=== PATIENT | male | born 1975 | race Hispanic/Latino ===

== ENCOUNTER 2022-09-24 21:41 | Emergency (ER) | payer OTHER, SELFPAY ==
[2022-09-24 22:06] LABS: Absolute Lymphocytes (CBC) 1.6 K/uL (0.7-4.9); Hematocrit 43.8 % (39.6-49.0); Lymphocytes % 13.6 % (15.3-44.8); MCV 92.1 fL (80-100); MPV 6.2 fL (7.6-11.3); RBC Red Blood Cell Count 4.76 M/uL (4.33-5.43)
[2022-09-24] MEDS ORDERED: FAMOTIDINE 20 MG/2 ML VIAL IV ONE (22:09)
[2022-09-24] MEDS ORDERED: ONDANSETRON 4 MG/2 ML VIAL ONE (22:09)
[2022-09-24] MEDS ORDERED: NA CHLORIDE 0.9% 1,000 ML ONE (22:09)
--- OUTSIDE RECORDS SUMMARY | 2022-09-24 22:23 | XMS REPORT | Continuity of Care Document ---
:1975 Author Organization [facility] t Address [address] [place] [address] [place] [id number] Care Team Providers Name Role Phone Unavailable Unavailable Unavailable Problems This patient has no known problems. Allergies, Adverse Reactions, Alerts This patient has no known allergies or adverse reactions. Medications This patient has no known medications. Procedures This patient has no known procedures. Encounters Start End Encounter Admission Attending Care Care Encounter Source Date/Time Date/Time Type Type Clinicians Facility Department ID 2022-09-20 2022-09-20 Outpatient SFA SFA [id number] Дмитрий 17:13:10 17:13:[address] [facility] 2022-09-18 2022-09-18 Outpatient SFA SFA [id number] Дмитрий 16:45:34 16:45:[address] [facility] 2022-09-02 2022-09-02 Outpatient SFA SFA [id number] Дмитрий 17:17:35 17:17:35 0522 [facility] 2022-08-27 2022-08-27 Outpatient SFA SFA [id number] Дмитрий 16:43:51 16:43:[address] [facility] 2022-08-26 2022-08-26 Outpatient SFA SFA [id number] Дмитрий 16:38:15 16:38:[address] [facility] 2022-08-21 2022-08-21 Outpatient SFA SFA [id number] Дмитрий 17:09:45 17:09:[address] [facility] 2022-08-20 2022-08-20 Outpatient SFA SFA [id number] Дмитрий 16:19:35 16:19:[address] [facility] Results Test Description Test Time Test Comments Results Result Comments Source SHELLY (ANTI-NUCLEAR AB) WITH REFLEX TITER 2022-09-21 04:08:14 Test Item Value Reference Range Interpretation Comme nts ANTI-NUCLEAR ANTIBODIES NEGATIVE NEGATIVE Met hodology is Indirect (test code = 3506) Immunoflu orescent Assay (IFA) with a titering system using [id number] cells ( Hep2 cells transfected wit h SS-A/Ro). SHELLY PATTERN (REPORTED SEE BELOW TITER) (test code = 23826) HOMOGENEOUS (test code = NEGATIVE TITER NEGATIVE 57985) SPECKLED (test code = NEGATIVE TITER NEGATIVE 806546) DENSE FINE SPECKLED (test NEGATIVE TITER NEGATIVE code = 24739) CENTROMERE (test code = NEGATIVE TITER NEGATIVE 629960) COARSE SPECKLED (test code NEGATIVE TITER NEGATIVE = 008825) DISCRETE NUCLEAR DOTS (test NEGATIVE TITER NEGATIVE code = 567273) NUCLEOLAR (test code = NEGATIVE TITER NEGATIVE 470785) NUCLEAR MEMBRANE (test code NEGATIVE TITER NEGATIVE = 044281) CYTO. RETICULAR (GISSEL) NEGATIVE NEGATIVE (test code = 735806) COMMENTS (test code = NONE 701581) METHOD (test code = 86623) (NOTE) TESTING PERFORMED BY [employer] NOV A VIEW IFA PLATFORM.THE NV THOD INCLUDES A SCREEN THRESHOL D OF 1:80, DIGITIZED AND C OMPUTER ALGORITHM-JOS JOY INTERPRETATION OF TITERS AND DIGITAL PATTERN S, AND HEp-2 CELL LINE SUBSTRATE. ADDITIONAL UNUSUAL PATTERN S WILL BE GIVEN COMMENTS.FOR MORE INFORMATION, SE E [email or web address] /[email or web address]-Testing IRON BINDING CAPACITY AND IRON AND % [id number] 11:23:06 Test Item Value Reference Range Interpretation Comments IRON, SERUM (test code = 2222) 123 UG/DL 59-158 UNSATURATED IBC (test code = 42839) 272 UG/DL 112-347 CALC TOTAL IBC (test code = 2076) 395 UG/DL 250-450 CALC % IRON SAT (test code = 2078) 31 % 20-50 [id number] 11:22:57 Test Item Value Reference Range Interpretation Comments FERRITIN (test code = 2074) 625 NG/ML 30-400 H [id number] 11:22:32 Test Item Value Reference Range Interpretation Comments TRANSFERRIN (test code = 4936) 310 MG/DL 200-360 [id number] 11:22:32 Test Item Value Reference Range Interpretation Comments GGT (test code = 6176) 119 U/L <60 H VITAMIN B 12 AND FOLIC [id number] 11:00:44 Test Item Value Reference Range Interpretation Comments VITAMIN B-12 (test 613 PG/ML 200-950 code = 2840) FOLIC ACID (test 8.4 UG/L SEE BELOW INTE RPRETIVE code = 2695) RANGES DE FICIENCY . . . . . . . . . . . . . . . UG/L <4.0 POS SIBLE DEFICIENCY. . . . . . . . . . . UG/L 4.0- 5.9 SUFFICIENT . . . . . . . . . . . . . . . UG/L >=6.0 UNLESS O THERWISE INDICATED, [facility] [employer], [facility]. [address] [place] [id number] [place] [address] DIRECTOR: JENI PIERCE M.D. [place] NUMBER [id number] CAP ACCREDITATION N O. [id number] HIV 1/2 4TH GEN, RFLX [id number] 02:56:27 Test Item Value Reference Range Interpretation Comments HIV 1/2 4TH GEN, RFLX CONF (test NON-REACTIVE NON-REACTIVE code = 3514) HEPATITIS PANEL, [id number] 02:56:27 Test Item Value Reference Range Interpretation Comments HEPATITIS A IgM (test NON-REACTIVE NON-REACTIVE code = 07364) HEPATITIS B CORE IgM NON-REACTIVE NON-REACTIVE (test code = 4644) HEPATITIS B SURF AG NON-REACTIVE NON-REACTIVE (test code = 2739) HEPATITIS C ANTIBODY NON-REACTIVE NON-REACTIVE (test code = 4675) INTERPRETATION (NOTE) Hepatitis A HEPATITIS A: (test code sero logy shows no = 2552) evidence of acu te hepatitis A. INTERPRETATION (NOTE) Hepatitis B HEPATITIS B: (test code sero logy shows no = 75601) evidence of acu te hepatitis B and no indication of exposure to hepatitis B vir us in the previous krystle eight months. INTERPRETATION (NOTE) Hepatitis C HEPATITIS C: (test code sero logy shows no = 81250) evidence of exposure to hepatitisC viru s at this time. I t can take up to 12 months after exposure tothe hepatitis C vir us for antibodies to become detectab le in the blood in certain patient s. COMPREHENSIVE METABOLIC [id number] 06:52:38 Test Item Value Reference Range Interpretation Comments GLUCOSE (test code = 92 MG/DL 70-99 2216) BUN (test code = 17 MG/DL 6-20 2207) CREATININE (test 1.49 MG/DL 0.80-1.40 H code = 2214) eGFR (2020 CKD-EPI) 57 ML/MIN/1.73 >60 L The N KF-ASN (test code = 94793) Taskforc e recommends use of Cystatin C to confirm eGFR inadults at [facility] for CKD. [facility] offers eGFR with Cystatin C-Creatinineusi ng the 2020 CKD-EP I eGFR_creat-cyst at equation (order code 3057) toincreas e the accuracy of estimated GFR. For more informatio n, contactyour acc ount executive or se e announcement [email or web address] [email or web address] CALC BUN/CREAT (test 11 RATIO 6-28 code = 2235) SODIUM (test code = 141 MEQ/L 873-910 6882) POTASSIUM (test code 4.6 MEQ/L 3.5-5.4 = 2227) CHLORIDE (test code 103 MEQ/L 95-107 = 2214) CARBON DIOXIDE (test 23 MEQ/L 19-31 code = 2206) CALCIUM (test code = 9.4 MG/DL 8.5-10.5 2208) PROTEIN, TOTAL (test 7.3 G/DL 6.1-8.3 code = 2229) ALBUMIN (test code = 4.6 G/DL 3.5-5.2 2200) CALC GLOBULIN (test 2.7 G/DL 1.9-3.7 code = 2240) CALC A/G RATIO (test 1.7 RATIO 1.0-2.6 code = 2234) BILIRUBIN, TOTAL 1.1 MG/DL See_Comment [Automated message] (test code = 2207) The syste m which generated this result transmit joy reference range : <=1.2. The refe rence range was not u sed to interpret th is result as normal/abnormal . ALKALINE PHOSPHATASE 98 U/L 40-118 (test code = 2204) AST (test code = 126 U/L 9-50 H 2217) ALT (test code = 314 U/L 5-50 H 2218) [id number] 06:51:20 Test Item Value Reference Range Interpretation Comments MAGNESIUM (test code = 2226) 2.6 MG/DL 1.6-2.6 [id number] 06:51:20 Test Item Value Reference Range Interpretation Comments PHOSPHORUS (test code 3.3 MG/DL 2.5-4.5 UNLES S OTHERWISE = 2227) INDICATED, ALL TESTING PERFORMED AT [facility], [facility]. [address] [place] [address] 4 LABORATORY DIRE CTOR: RICKIE ADKINS M.D. [place] NUMBER [id number] [place] [id number] CBC W/AUTO DIFF WITH [id number] 02:32:55 Test Item Value Reference Range Interpretation Comments WBC (test code = 5.1 K/UL 3.5-11.0 1001) RBC (test code = 4.61 M/UL 4.50-6.10 1002) HEMOGLOBIN (test code 14.7 G/DL 13.5-17.0 = 1003) HEMATOCRIT (test code 42.8 % 40.0-51.0 = 1004) MCV (test code = 92.8 fL 80.0-99.0 1005) MCH (test code = 31.9 PG 25.0-33.0 1006) MCHC (test code = 34.3 G/DL 31.0-36.0 1007) RDW (test code = 12.5 % 11.5-15.0 1038) NEUTROPHILS (test 52.5 % code = 1008) LYMPHOCYTES (test 26.7 % code = 1010) MONOCYTES (test code 13.9 % = 1011) EOSINOPHILS (test 5.3 % code = 1012) BASOPHILS (test code 0.8 % = 1013) IMMATURE GRANULOCYTES 0.8 % (test code = 1036) NUCLEATED RBCS (test 0.0 /100 WBC'S See_Comment [Aut omated code = 1065) message] The sy stem which generated this result transmitted reference range : 0.0. The refere nce range was not u sed to interpret th is result as normal/abnormal . PLATELET COUNT (test 265 K/UL 130-400 code = 1015) ABSOLUTE NEUTROPHILS 2.65 K/UL 1.50-7.50 (test code = 1066) ABSOLUTE LYMPHOCYTES 1.35 K/UL 1.00-4.00 (test code = 1067) ABSOLUTE MONOCYTES 0.70 K/UL 0.20-1.00 (test code = 1068) ABSOLUTE EOSINOPHILS 0.27 K/UL 0.00-0.50 (test code = 1040) ABSOLUTE BASOPHILS 0.04 K/UL 0.00-0.20 (test code = 1069) ABS IMMATURE 0.04 K/UL 0.00-0.10 GRANULOCYTES (test code = 1020) ABS NUCLEATED RBCS 0.00 K/UL 0.00-0.11 (test code = 59260)
[2022-09-24 22:26] LABS: Bilirubin Total 1.5 mg/dL (0.2-1.0); Protein, Total 8.1 g/dL (6.4-8.2); Troponin High Sensitivity 20.1 pg/mL (<58.9)
[2022-09-24 22:28] LABS: Potassium 3.4 mEq/L (3.5-5.1)
[2022-09-25] MEDS ORDERED: NA CHLORIDE 0.9% 1,000 ML ONE (00:49)
--- NOTE | 2022-09-25 00:59 | EDPHYS ---
Physician Documentation [facility] Name: Good Marin Age: 47 yrs Sex: Male : 1975 Arrival Date: 09/24/2022 Time: 21:41 Bed 18 Private MD: ED Physician Jose Daniel Miller HPI: 09/24 23:14 This 47 yrs old Male presents to ER via Ambulatory with complaints of Vomiting.kb 23:14 The patient presents to the emergency department with nausea, vomiting, abdominal pain, kb of the epigastric area, described as burning. 23:15 Onset: The symptoms/episode began/occurred today, at 15:00. Possible causes: unknown. kb The symptoms are aggravated by nothing. The symptoms are alleviated by nothing. Associated signs and symptoms: Pertinent positives: abdominal pain, nausea, vomiting, Pertinent negatives: fever. Severity of symptoms: At their worst the symptoms were moderate in the emergency department the symptoms are unchanged. The patient has not experienced similar symptoms in the past. The patient has not recently seen a physician. Historical: - Allergies: 21:58 No Known Allergies; pf1 - Home Meds: 21:58 omeprazole Oral [Active]; pf1 - PMHx: 21:58 Alcohol dependence; pf1 - PSHx: 21:58 None; pf1 - Immunization history:: Adult Immunizations not up to date, Last tetanus immunization: > 10 years ago Flu vaccine is not up to date. - Social history:: Smoking status: Patient denies any tobacco usage or history of. Patient uses alcohol, on a daily basis. Patient/guardian denies using street drugs. ROS: 22:25 Constitutional: Negative for fever, chills, and weight loss. kb 22:25 Abdomen/GI: Positive for abdominal pain, nausea and vomiting. 22:25 All other systems are negative. Exam: 22:25 Constitutional: This is a well developed, well nourished patient who is awake, alert, kb and in no acute distress. Head/Face: Normocephalic, atraumatic. Cardiovascular: Regular rate and rhythm with a normal S1 and S2. No gallops, murmurs, or rubs. No pulse deficits. Respiratory: Respirations even and unlabored. No increased work of breathing. Talking in full sentences Abdomen/GI: Soft, non-tender. No distention Skin: Warm, dry with normal turgor. Normal color. MS/ Extremity: Pulses equal, no cyanosis. Neurovascular intact. Full, normal range of motion. Neuro: Awake and alert, GCS 15, oriented to person, place, time, and situation. Moves all extremities. Normal gait. 22:25 ECG was reviewed by the Attending Physician. kb Vital Signs: 21:55 BP 160 / 114; Pulse 113; Resp 18; Temp 98.6; Pulse Ox 98% on R/A; Weight 69.85 kg; pf1 Height 5 ft. 9 in. ; Pain 9/10; 23:00 BP 154 / 93; Pulse 111; Resp 14; Pulse Ox 100% on R/A; Pain 0/10; pf1 09/25 00:00 BP 152 / 93; Pulse 101; Resp 14; Pulse Ox 97% on R/A; pf1 01:00 BP 157 / 91; Pulse 94; Resp 18; Pulse Ox 97% ; Pain 0/10; pf1 02:00 BP 147 / 93; Pulse 99; Resp 18; Pulse Ox 98% on R/A; Pain 0/10; pf1 09/24 21:55 Body Mass Index 22.74 (69.85 kg, 175.26 cm) 1 09/24 21:55 Pain Scale: Adult pf1 23:00 Pain Scale: Adult pf1 01:00 Pain Scale: Adult pf1 02:00 Pain Scale: Adult pf1 MDM: 09/24 21:44 Patient medically screened. kb 23:15 Differential diagnosis: Nonspecific abd pain, gastritis, viral gastroenteritis. Data kb reviewed: vital signs, nurses notes. 09/25 00:57 Consideration of Admission/Observation Escalation of care including kb admission/observation considered. Management of patient was discussed with the following: Dr Miller. Counseling: I had a detailed discussion with the patient and/or guardian regarding: the historical points, exam findings, and any diagnostic results supporting the discharge/admit diagnosis, lab results, radiology results, the need for outpatient follow up, a family practitioner, a airline ticket agent, to return to the emergency department if symptoms worsen or persist or if there are any questions or concerns that arise at home. 09/24 21:47 Order name: CBC with Diff; Complete Time: 22:16 kb 09/24 21:47 Order name: CMP; Complete Time: 22:29 kb 09/24 21:47 Order name: Lipase; Complete Time: 22:29 kb 09/24 22:11 Order name: Troponin High Sensitivity; Complete Time: 22:29 EDMS 09/24 21:47 Order name: CT Abd/Pelvis - IV Contrast Only kb 09/24 21:47 Order name: IV Saline Lock; Complete Time: 22:04 kb 09/24 21:47 Order name: Labs collected and sent; Complete Time: 22:04 kb EC/13 22:25 Rate is 107 beats/min. Rhythm is regular. QRS Dwale is Normal. GA interval is normal at kb 128 msec. QRS interval is normal at 94 msec. QT interval is normal at 448 msec. Administered Medications: 22:05 Drug: NS 0.9% IV 1000 ml Route: IV; Rate: 1 bolus; Site: right antecubital; pf1 23:04 Follow up: Response: No adverse reaction; Marked relief of symptoms; IV Status: pf1 Completed infusion; IV Intake: 1000ml 22:05 Drug: Ondansetron IVP 4 mg Route: IVP; Site: right antecubital; pf1 23:04 Follow up: Response: No adverse reaction; Marked relief of symptoms; Nausea is decreasedpf1 22:05 Drug: Famotidine IVP 20 mg Route: IVP; Site: right antecubital; pf1 23:04 Follow up: Response: No adverse reaction; Marked relief of symptoms; Pain is decreased pf1 09/25 00:44 Drug: NS 0.9% IV 1000 ml Route: IV; Rate: 1000 ml; Site: right antecubital; ha1 01:18 Follow up: Response: No adverse reaction; Marked relief of symptoms pf1 01:40 Follow up: Response: No adverse reaction; Marked relief of symptoms; IV Status: pf1 Completed infusion; IV Intake: 1000ml 01:20 Drug: Ativan IVP 1 mg Route: IVP; Site: right antecubital; pf1 02:20 Follow up: Response: No adverse reaction; Marked relief of symptoms pf1 Disposition: 02:07 Co-signature as Attending Physician, Jose Daniel Miller MD I reviewed the patient's care rt provided by the Advanced Practice Provider and agree with the diagnosis and treatment plan. Disposition Summary: 09/25/22 00:58 Discharge Ordered Location: Home kb Condition: Stable kb Diagnosis - Nausea with vomiting, unspecified kb - Esophagitis, unspecified kb Followup: kb - With: Emergency Department - When: As needed - Reason: Worsening of condition Followup: kb - With: Private Physician - When: 2 - 3 days - Reason: Recheck today's complaints, Continuance of care, Re-evaluation by your physician Discharge Instructions: - Discharge Summary Sheet kb - Esophagitis kb - Nausea and Vomiting, Adult, [id number] kb Forms: - Medication Reconciliation Form kb - Thank You Letter kb - Antibiotic Education kb - Prescription Opioid Use kb Prescriptions: - Protonix 40 mg Oral Tablet - take 1 tablet by ORAL route once daily; 30 tablet; Refills: 0, Product kb Selection Permitted - Zofran 4 mg Oral Tablet - take 1 tablet by ORAL route every 6 hours As needed; 20 tablet; Refills: 0, kb Product Selection Permitted Signatures: Dispatcher [employer] EDKeren Alicia, [employer]-C [employer] OFFICER-Imani Demarco, RN RN ha1 Jose Daniel Miller MD MD rt Michaela Wills RN RN pf1 Corrections: (The following items were deleted from the chart) 09/24 22:11 22:02 Troponin High Sensitivity+C.LAB.BRZ ordered. EDIN EDMS
--- NOTE | 2022-09-25 00:59 | ER ---
Nurse's Notes [facility] Name: Good Marin Age: 47 yrs Sex: Male : 1975 Arrival Date: 09/24/2022 Time: 21:41 Bed 18 Private MD: Diagnosis: Nausea with vomiting, unspecified;Esophagitis, unspecified Presentation: 09/24 21:55 Chief complaint: Patient states: epigastric burning pain of 9 with vomiting x 4 pf1 episodes,onset 1500 today. Patient stated drank 4 shots of Gareth Ya and drank 1 beer today. Patient stated drank a lot of alcohol over the weekend than his normal. Coronavirus screen: Vaccine status: Patient reports receiving the 2nd dose of the covid vaccine. 3 doses of Moderna Client denies travel out of the [place] in the last 14 days. At this time, the client does not indicate any symptoms associated with coronavirus-19. Ebola Screen: Patient negative for fever greater than or equal to 101.5 degrees Fahrenheit, and additional compatible Ebola Virus Disease symptoms. Initial Sepsis Screen: Does the patient meet any 2 criteria? HR > 90 bpm. No. Patient's initial sepsis screen is negative. Does the patient have a suspected source of infection? No. Patient's initial sepsis screen is negative. Risk Assessment: Do you want to hurt yourself or someone else? Patient reports no desire to harm self or others. 21:55 Method Of Arrival: Ambulatory pf1 21:55 Acuity: DIVYA 3 pf1 Historical: - Allergies: 21:58 No Known Allergies; pf1 - Home Meds: 21:58 omeprazole Oral [Active]; pf1 - PMHx: 21:58 Alcohol dependence; pf1 - PSHx: 21:58 None; pf1 - Immunization history:: Adult Immunizations not up to date, Last tetanus immunization: > 10 years ago Flu vaccine is not up to date. - Social history:: Smoking status: Patient denies any tobacco usage or history of. Patient uses alcohol, on a daily basis. Patient/guardian denies using street drugs. Screenin:00 [facility] ED Fall Risk Assessment (Adult) History of falling in the last 3 months, pf1 including since admission No falls in past 3 months (0 pts) Confusion or Disorientation No (0 pts) Intoxicated or Sedated No (0 pts) Impaired Gait No (0 pts) Mobility Assist Device Used No (0 pt) Altered Elimination No (0 pt) Score/Fall Risk Level 0 - 2 = Low Risk Oriented to surroundings, Maintained a safe environment, Educated pt \T\ family on fall prevention, incl call for assistance when getting out of bed, Assessed \T\ reinforced patient's understanding of fall precautions, Provided non-skid footwear, Hourly rounding (assess needs \T\ fall precautionary measures) done, Used ambulatory aids as needed (educated on \T\ assisted with), Used gait belt as appropriate. Abuse screen: Denies threats or abuse. Nutritional screening: No deficits noted. Tuberculosis screening: No symptoms or risk factors identified. Assessment: 22:02 General: Appears in no apparent distress. uncomfortable, well groomed, well developed, pf1 Behavior is calm, cooperative, appropriate for age, quiet. Pain: Complains of pain in epigastric pain Pain currently is 9 out of 10 on a pain scale. Neuro: No deficits noted. Level of Consciousness is awake, alert, obeys commands, Oriented to person, place, time, situation. Cardiovascular: No deficits noted. Reports vomiting, since today Capillary refill < 3 seconds Patient's skin is warm and dry. Respiratory: No deficits noted. Airway is patent Trachea midline Respiratory effort is even, unlabored, Respiratory pattern is regular, symmetrical. GI: Abdomen is flat, non-distended, Bowel sounds present X 4 quads. Reports epigastric pain, nausea, vomiting, since 1500 today. : No deficits noted. No signs and/or symptoms were reported regarding the genitourinary system. EENT: No deficits noted. Derm: No deficits noted. No signs and/or symptoms reported regarding the dermatologic system. Musculoskeletal: No deficits noted. No signs and/or symptoms reported regarding the musculoskeletal system. Circulation, motion, and sensation intact. Capillary refill < 3 seconds, Range of motion: intact in all extremities. 23:03 Reassessment: Patient appears in no apparent distress at this time. Patient and/or pf1 family updated on plan of care and expected duration. Pain level reassessed. Patient is alert, oriented x 3, equal unlabored respirations, skin warm/dry/pink. Patient denies pain at this time. Patient states feeling better. Patient states symptoms have improved. 09/25 00:00 Reassessment: Patient appears in no apparent distress at this time. Patient and/or pf1 family updated on plan of care and expected duration. Pain level reassessed. Patient is alert, oriented x 3, equal unlabored respirations, skin warm/dry/pink. Patient denies pain at this time. Patient states feeling better. Patient states symptoms have improved. 01:00 Reassessment: Patient appears in no apparent distress at this time. Patient and/or pf1 family updated on plan of care and expected duration. Pain level reassessed. Patient is alert, oriented x 3, equal unlabored respirations, skin warm/dry/pink. Patient denies pain at this time. Patient states feeling better. Patient states symptoms have improved. 02:00 Reassessment: Patient appears in no apparent distress at this time. Patient and/or pf1 family updated on plan of care and expected duration. Pain level reassessed. Patient is alert, oriented x 3, equal unlabored respirations, skin warm/dry/pink. Patient denies pain at this time. Patient states feeling better. Patient states symptoms have improved. Vital Signs: 09/24 21:55 BP 160 / 114; Pulse 113; Resp 18; Temp 98.6; Pulse Ox 98% on R/A; Weight 69.85 kg; pf1 Height 5 ft. 9 in. ; Pain 9/10; 23:00 BP 154 / 93; Pulse 111; Resp 14; Pulse Ox 100% on R/A; Pain 0/10; pf1 09/25 00:00 BP 152 / 93; Pulse 101; Resp 14; Pulse Ox 97% on R/A; pf1 01:00 BP 157 / 91; Pulse 94; Resp 18; Pulse Ox 97% ; Pain 0/10; pf1 02:00 BP 147 / 93; Pulse 99; Resp 18; Pulse Ox 98% on R/A; Pain 0/10; pf1 09/24 21:55 Body Mass Index 22.74 (69.85 kg, 175.26 cm) pf1 09/24 21:55 Pain Scale: Adult pf1 23:00 Pain Scale: Adult pf1 01:00 Pain Scale: Adult pf1 02:00 Pain Scale: Adult pf1 ED Course: 09/24 21:42 Patient arrived in ED. ja2 21:44 Keren Sheppard FNP-C is PHCP. kb 21:44 Jose Daniel Miller MD is Attending Physician. kb 21:55 No provider procedures requiring assistance completed. Inserted saline lock: 22 gauge pf1 in right antecubital area, using aseptic technique. Blood collected. 21:58 Triage completed. pf1 22:00 Arm band placed on right wrist. pf1 22:00 Patient has correct armband on for positive identification. Bed in low position. Call pf1 light in reach. Side rails up X2. 22:04 CBC with Diff Sent. pf1 22:04 CMP Sent. pf1 22:04 Lipase Sent. pf1 22:55 CT Abd/Pelvis - IV Contrast Only In Process Unspecified. EDMS 23:00 Michaela Wills, TATI is Primary Nurse. pf1 09/25 02:30 IV discontinued, intact, bleeding controlled, No redness/swelling at site. Pressure pf1 dressing applied. Administered Medications: 09/24 22:05 Drug: NS 0.9% IV 1000 ml Route: IV; Rate: 1 bolus; Site: right antecubital; pf1 23:04 Follow up: Response: No adverse reaction; Marked relief of symptoms; IV Status: pf1 Completed infusion; IV Intake: 1000ml 22:05 Drug: Ondansetron IVP 4 mg Route: IVP; Site: right antecubital; pf1 23:04 Follow up: Response: No adverse reaction; Marked relief of symptoms; Nausea is decreasedpf1 22:05 Drug: Famotidine IVP 20 mg Route: IVP; Site: right antecubital; pf1 23:04 Follow up: Response: No adverse reaction; Marked relief of symptoms; Pain is decreased pf1 09/25 00:44 Drug: NS 0.9% IV 1000 ml Route: IV; Rate: 1000 ml; Site: right antecubital; ha1 01:18 Follow up: Response: No adverse reaction; Marked relief of symptoms pf1 01:40 Follow up: Response: No adverse reaction; Marked relief of symptoms; IV Status: pf1 Completed infusion; IV Intake: 1000ml 01:20 Drug: Ativan IVP 1 mg Route: IVP; Site: right antecubital; pf1 02:20 Follow up: Response: No adverse reaction; Marked relief of symptoms pf1 Medication: 02:40 VIS not applicable for this client. pf1 Intake: 09/24 23:04 IV: 1000ml; Total: 1000ml. pf1 09/25 01:40 IV: 1000ml; Total: 2000ml. pf1 Outcome: 00:58 Discharge ordered by . moni 02:39 Discharged to home ambulatory, with family. pf1 02:39 Condition: improved 02:39 Discharge instructions given to patient, Instructed on discharge instructions, follow up and referral plans. Demonstrated understanding of instructions, follow-up care, medications, Prescriptions given X 2. 02:40 Patient left the ED. pf1 Signatures: Dispatcher [employer] EDMS Keren Sheppard, GILL NET STRINGER-C GILL NET STRINGER-CkNamrata Guerra2 Imani Curry, RN RN ha1 Michaela Wills RN RN pf1 Corrections: (The following items were deleted from the chart) 09/24 22:11 22:04 Troponin High Sensitivity+[id number].LAB.[email or web address] drawn and sent. pf1 EDMS
[2022-09-25] MEDS ORDERED: LORazepam 2 MG/ML VIAL ONE (01:24)
[2022-09-25 03:04] VITALS: TEMP 98.6
[2022-09-25 03:11] VITALS: BP 147/93; O2SAT 98
--- NOTE | 2022-09-25 11:23 | RAD REPORT ---
EXAM DESCRIPTION: CT - Abdomen Pelvis W Contrast - 09/25/2022 6:53 am CLINICAL HISTORY: 47-year-old male with abdominal pain. COMPARISON: None. TECHNIQUE: CT of the abdomen and pelvis was performed following intravenous administration of contra st. Oral contrast was not administered. Multiplanar reformatted images were provided. This exam was p erformed according to our departmental dose optimization program which includes use of automated expo sure control, adjustment of the mA and/or kV according to patient size and/or use of iterative recons truction technique. FINDINGS: Chest: Evaluation through the lung bases reveals no focal opacity, pleural effusion or pne umothorax. Heart size is within normal limits. No pericardial effusion. Severe wall thickening of the distal visualized esophagus measuring to approximately 12 mm in thickne ss Abdomen and pelvis: The liver, gallbladder, pancreas, spleen, bilateral kidneys and bilateral adrenal glands are within normal limits. Exophytic right renal cyst measures 1.8 cm. The vessels are patent and normal in caliber. No abdominopelvic lymph nodes are noted to be pathologically enlarged by CT measurement criteria. Focal wall thickening of the ascending colon may be secondary to focal colitis or incomplete distenti on. The remaining bowel is within normal limits without abnormal bowel wall thickness or bowel dilation. No free air. No free abdominopelvic fluid collections. The appendix is within normal limits. The osseous structures are within normal limits. IMPRESSION: 1. No specific acute intra-abdominal findings are noted to suggest etiology of the pat ient's abdominal pain. 2. Severe wall thickening of the distal visualized esophagus measuring to approximately 12 mm in th ickness. Further evaluation with GI consultation may be considered. 3. Focal wall thickening of the ascending colon may be secondary to focal colitis or incomplete dis tention. Electronically signed by: Jazmín Patel MD 09/24/2022 11:53 PM CDT Due to temporary technical issues with the PACS/Fluency reporting system, reports are being signed by the in house radiologist without review as a courtesy to ensure prompt reporting. The interpreting r adiologist is fully responsible for the content of the report.
--- NOTE | 2022-09-26 13:57 | EKG ---
Test Date: 2022-09-24 Test Time: 21:57:00 Podiatry Teacher: BHAVANI MEASUREMENT RESULTS: Intervals: Rate: 107 RI: 128 QRSD: 94 QT: 336 QTc: 448 [place]: P: 55 RI: 128 QRS: 85 T: -2 INTERPRETIVE STATEMENTS: Sinus tachycardia ST & T wave abnormality, consider inferior ischemia Abnormal ECG No previous ECG available for comparison Electronically Signed On 09-26-22 13:55:34 CDT by Xavier Pool
== END 2022-09-25 02:40 | disposition home or self-care (01) ==
LOC: ER 21:41
DX: R11.2 Nausea with vomiting, unspecified (principal); K20.90 Esophagitis, unspecified without bleeding
CPT/HCPCS: 36415; 74177; 80053; 83690; 84484; 85025; 93005; 96361; 96374; 96375; 99284; J2405; J7030; Q9967